=== PATIENT | female | born 1985 | race Caucasian/White ===

== ENCOUNTER 2018-03-11 12:11 | Observation (INO) ==
[2018-03-11] MEDS ORDERED: Isovue-370 500 ML INFUS..BTL IV ONE (12:38)
[2018-03-11] MEDS ORDERED: 0.9 % Sodium Chloride 1,000 ML IVC ONE (12:56)
[2018-03-11] MEDS ORDERED: Ketorolac 15 MG/ML VIAL IVP ONE ×2 (13:04→18:10)
--- NOTE | 2018-03-11 13:05 | Emergency Department Note ---
Disposition Clinical Impression: Abscess of arm, left, Septic thrombophlebitis Disposition: Admitted As Inpatient Condition: Fair Referrals: Cesar Andrew, PAC [Primary Care Provider] - Forms: ED Satisfaction Letter Time of Disposition: 18:14 General Adult HPI - General Chief complaint: ED Recheck/Abnormal Lab/Rx Stated complaint: Arm pain Time Seen by Provider: 03/11/18 12:14 Source: patient Limitations: no limitations Nursing Notes Reviewed: Yes Vital Signs Reviewed: Yes - History of Present Illness HPI Narrative: 32-year-old female past medical history of IV drug use presents emergency department with concern for left wrist and arm pain and swelling. Patient states that she injected into her arm. This started 4 days ago. She states this draining purulent fluid. Patient reports fever. Denies any chest pain, shortness of breath. Patient does have feeling in the left arm. Not on any recent antimicrobial therapy. Pain Scale: 9 - Related Data Home Medications Medication Instructions Recorded Confirmed No Known Home Drugs 03/11/18 03/11/18 Allergies Allergy/AdvReac Type Severity Reaction Status Date / Time No Known Allergies Allergy Verified 03/31/17 17:21 All systems ED: reviewed and negative except as stated. 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 Absent: respiratory distress - Cardiovascular Cardiovascular exam: Present: regular rate, normal rhythm, normal heart sounds - Abdominal Exam Abdominal exam: Present: soft, Non-Tender. Absent: distention, guarding, rebound, rigidity - Extremities Exam Extremities exam: Present: other (Left wrist has erythema and redness. On the proximal aspect of the posterior forearm, there is evidence of 2 abscesses. There are 2 areas of purulent drainage there as well. Patient is neurovascularly intact. Compartments are soft, but there is extensive tenderness to palpation.) - Neurological Exam Neurological exam: Present: alert, oriented X3 - Psychiatric Psychiatric exam: Present: anxious - Skin Skin exam: Present: other (As noted in extremity exam) Course Vital Signs Temperature 99.3 F 03/11/18 12:16 Pulse Rate 88 03/11/18 12:16 Respiratory Rate 18 03/11/18 12:16 Blood Pressure 120/83 03/11/18 12:16 O2 Sat by Pulse Oximetry 100 03/11/18 12:16 Temperature 99.3 F 03/11/18 12:16 Pulse Rate 120 03/11/18 14:50 Respiratory Rate 18 03/11/18 13:24 Blood Pressure 103/75 03/11/18 14:50 O2 Sat by Pulse Oximetry 100 03/11/18 14:50 Oxygen Delivery Oxygen Delivery Room Air Medical Decision Making - [facility] Narrative Medical decision making narrative: 32-year-old female presents emergency department with concern for left upper extremity abscesses with surrounding cellulitis. Left upper extremity is neurovascularly intact. Compartments are soft at this time. Patient mainly started on IV antimicrobial therapy with vancomycin and Zosyn. Patient has not resolved this is a 14.2. We obtain CT scan of the left upper extremity. Anticipation for admission as concerned that left upper extremity cellulitis may worsen, causing compartment syndrome. Also concerned that due to patient's IV drug use, she may not be compliant with outpatient therapy. Upper extremity CT revealed 2 abscesses along the dorsal radial aspect of the forearm. They were both superficial to the musculotendinous junction. One of the abscesses surrounded the cephalic vein. There was partial thrombosis. Concern for septic thrombophlebitis. Blood cultures have been obtained. I spoke with Dr. Jesus, the orthopedic surgeon. He stated he will come by and see the patient this evening. Stated that into coagulation would not be necessary at this time. I spoke with patient at bedside regarding further management. She agreed with the plan. Hospitalist agreed to accept the patient for admission. Dr. Cedillo, the hospitalist saw patient at bedside. Reported that was in room. Patient verbalized requesting to Dr. Cedillo that her not be informed of her IV drug use. Upper Extremity CT 03/11/18 12:38 IMPRESSION: There are 2 abscesses identified along the dorsal and radial aspect of the forearm as described above. D/ / Adebayo Agneles MD / Adebayo Angeles MD Interpreting Provider: Adebayo Angeles MD - Lab Data Result diagrams: 03/11/18 13:15 03/11/18 14:54 Lab Results 03/11/18 03/11/18 03/11/18 Range/Units 13:15 13:15 13:15 WBC 14.2 H (4.3-11.1) K/mcL RBC 4.20 (3.82-4.97) M/mcL Hgb 12.4 (11.5-15.4) g/dL Hct 38.2 (35.3-44.9) % MCV 91.0 (83.0-100.0) fL MCH 29.5 (28.0-33.3) pg MCHC 32.5 (31.6-35.5) g/dL RDW 14.2 (11.5-14.5) % Plt Count 262 (140-400) K/mcL MPV 9.2 L (9.4-12.4) fL Immature Gran % 0.5 (0-4) % Seg Neutrophils % 81.6 % Lymphocytes % 10.5 % Monocytes % 6.6 % Eosinophils % 0.5 % Basophils % 0.3 % Neutrophils # 11.6 H (1.6-8.9) K/mcL Lymphocytes # 1.5 (0.6-4.6) K/mcL Monocytes # 0.9 (0.0-1.3) K/mcL Eosinophils # 0.1 (0.0-0.6) K/mcL Basophils # 0.0 (0.0-0.2) K/mcL ESR 100 H (0-15) mm/hr Sodium (136-145) mEq/L Potassium (3.5-5.1) mEq/L Chloride (98-107) mEq/L Carbon Dioxide (23-29) mEq/L BUN (6-20) mg/dL Creatinine (0.60-1.20) mg/dL Est GFR ( Amer) (> 60) Est GFR (Non-Af Amer) (> 60) BUN/Creatinine Ratio (6-26) Glucose (70-105) mg/dL Calculated Osmolality (280-300) Lactic Acid (0.5-2.2) mmol/L Calcium (8.6-10.3) mg/dL Total Bilirubin (0.3-1.0) mg/dL AST (13-39) Units/L ALT (7-52) Units/L Alkaline Phosphatase (34-104) Units/L C-Reactive Protein 94 H (Less than 10) mg/L Serum Total Protein (6.4-8.9) g/dL Albumin (3.5-5.7) g/dL Globulin (2.4-3.5) g/dL Albumin/Globulin Ratio (1.1-2.2) Beta HCG, Quant (Less than 5) mIU/mL 03/11/18 03/11/18 Range/Units 14:54 14:54 WBC (4.3-11.1) K/mcL RBC (3.82-4.97) M/mcL Hgb (11.5-15.4) g/dL Hct (35.3-44.9) % MCV (83.0-100.0) fL MCH (28.0-33.3) pg MCHC (31.6-35.5) g/dL RDW (11.5-14.5) % Plt Count (140-400) K/mcL MPV (9.4-12.4) fL Immature Gran % (0-4) % Seg Neutrophils % % Lymphocytes % % Monocytes % % Eosinophils % % Basophils % % Neutrophils # (1.6-8.9) K/mcL Lymphocytes # (0.6-4.6) K/mcL Monocytes # (0.0-1.3) K/mcL Eosinophils # (0.0-0.6) K/mcL Basophils # (0.0-0.2) K/mcL ESR (0-15) mm/hr Sodium 136 (136-145) mEq/L Potassium 3.6 (3.5-5.1) mEq/L Chloride 107 (98-107) mEq/L Carbon Dioxide 24 (23-29) mEq/L BUN 6 (6-20) mg/dL Creatinine 0.38 L (0.60-1.20) mg/dL Est GFR ( Amer) > 60 (> 60) Est GFR (Non-Af Amer) > 60 (> 60) BUN/Creatinine Ratio 16 (6-26) Glucose 83 (70-105) mg/dL Calculated Osmolality 279 L (280-300) Lactic Acid 0.9 (0.5-2.2) mmol/L Calcium 8.3 L (8.6-10.3) mg/dL Total Bilirubin 0.4 (0.3-1.0) mg/dL AST 12 L (13-39) Units/L ALT 10 (7-52) Units/L Alkaline Phosphatase 65 (34-104) Units/L C-Reactive Protein (Less than 10) mg/L Serum Total Protein 6.9 (6.4-8.9) g/dL Albumin 3.4 L (3.5-5.7) g/dL Globulin 3.5 (2.4-3.5) g/dL Albumin/Globulin Ratio 1.0 L (1.1-2.2) Beta HCG, Quant < 1 (Less than 5) mIU/mL
--- NOTE | 2018-03-11 13:25 | Emergency Department Note ---
Disposition Clinical Impression: Abscess of arm, left Disposition: Still a Patient Referrals: Cesar Andrew, PAC [Primary Care Provider] - Forms: ED Satisfaction Letter General Adult HPI - General Chief complaint: ED Recheck/Abnormal Lab/Rx Stated complaint: Arm pain Time Seen by Provider: 03/11/18 12:14 Source: patient Limitations: no limitations - History of Present Illness Pain Scale: 9 - Related Data Home Medications Medication Instructions Recorded Confirmed Melatonin 03/31/17 Paxil 03/31/17 Tramadol HCl 03/31/17 03/31/17 Previous Rx's Medication Instructions Recorded Azithromycin [Azithromycin 6-Tab 250 mg PO PER PKG DI #6 tab 03/31/17 Pack] Naproxen 500 mg PO BID #6 tablet 03/31/17 Allergies Allergy/AdvReac Type Severity Reaction Status Date / Time No Known Allergies Allergy Verified 03/31/17 17:21 Past Medical History - Past Medical History Medical history: Reports: hepatitis, other Psychiatric history: Reports: anxiety, depression 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 - Social History Smoking Status: Current every day smoker Smokeless Tobacco Status: No Alcohol use: Reports: rarely Drug use: Reports: marijuana, methamphetamine Physical Exam - General Limitations: no limitations General appearance: alert Course Vital Signs Temperature 99.3 F 03/11/18 12:16 Pulse Rate 88 03/11/18 12:16 Respiratory Rate 18 03/11/18 12:16 Blood Pressure 120/83 03/11/18 12:16 O2 Sat by Pulse Oximetry 100 03/11/18 12:16 Temperature 99.3 F 03/11/18 12:16 Pulse Rate 88 03/11/18 12:16 Respiratory Rate 18 03/11/18 12:16 Blood Pressure 120/83 03/11/18 12:16 O2 Sat by Pulse Oximetry 100 03/11/18 12:16 Oxygen Delivery Oxygen Delivery Room Air Attestation Statement - Attestation Attestation: I examined this patient and my medical decision-making was reviewed with the Resident Physician. I agree with the documented findings, disposition and treatment plan as described except to the extent set forth below. 32 year old female presents to the Ed with complaints of left wrist abscess and pain and is a known IVDA and states that this has been getting wrose over hte past few days and now she is feeling increasinlgy weak and rigors with chills. Her left radial pulse is strong and she has good cap refill but hte left hand is displaying pallor and mild swelling in comparision ot the right. There is concern for compartment syndrome vs deep tissue infection. We will obtain a CT of the left arm, hand and then start IV ABX with vanco/zosyn, clinda and IVF and then consult with hand/ortho and admit to medicine
[2018-03-11 13:30] LABS: Basophils % 0.3 %; Eosinophils # 0.1 K/mcL (0.0-0.6); Eosinophils % 0.5 %; Hematocrit 38.2 % (35.3-44.9); Hemoglobin 12.4 g/dL (11.5-15.4); Immature Granulocytes % 0.5 % (0-4); Lymphocytes # 1.5 K/mcL (0.6-4.6); Lymphocytes % 10.5 %; Mean Corpuscular HGB Conc 32.5 g/dL (31.6-35.5); Mean Corpuscular Hemoglobin 29.5 pg (28.0-33.3); Mean Platelet Volume 9.2 fL (9.4-12.4); Monocytes # 0.9 K/mcL (0.0-1.3); Monocytes % 6.6 %; Neutrophils # 11.6 K/mcL (1.6-8.9); Platelet Count 262 K/mcL (140-400); Red Cell Distribution Width 14.2 % (11.5-14.5); Segmented Neutrophils % 81.6 %
[2018-03-11 15:27] LABS: Alanine Aminotransferase 10 Units/L (7-52); Albumin 3.4 g/dL (3.5-5.7); Alkaline Phosphatase 65 Units/L (34-104); Aspartate Amino Transferase 12 Units/L (13-39); BUN/Creatinine Ratio 16 (6-26); Bilirubin,Total 0.4 mg/dL (0.3-1.0); Blood Urea Nitrogen 6 mg/dL (6-20); Calcium 8.3 mg/dL (8.6-10.3); Carbon Dioxide 24 mEq/L (23-29); Chloride 107 mEq/L (98-107); Globulin 3.5 g/dL (2.4-3.5); Glucose 83 mg/dL (70-105); Osmolality,Calculated 279 (280-300); Potassium 3.6 mEq/L (3.5-5.1); Sodium 136 mEq/L (136-145); Total Protein 6.9 g/dL (6.4-8.9); eGFR For Non-African Americans > 60 (> 60)
[2018-03-11] MEDS ORDERED: Tdap (Boostrix) Vaccine 0.5 ML SYRINGE IM ONE (16:29)
[2018-03-11] MEDS ORDERED: Naloxone 0.4 MG/ML INJ IVP PRN ×2 (18:19→23:31)
[2018-03-11] MEDS ORDERED: Ketorolac 30 MG/ML VIAL IVP PRN (18:23)
[2018-03-11] MEDS ORDERED: Ringers Solution, Lactated 1,000 ML IVC SCH ×2 (18:30→23:31)
--- NOTE | 2018-03-11 19:53 | Internal Med History&Physical ---
Date of Encounter: 03/11/18 Time of Encounter: 17:45 Internal Medicine - H&P: HPI Chief complaint: Swelling R arm Admitted From: Emergency Dept Plans for Post Hospital Care: Home History of present illness: Ms. Thomson is a 32 year old female presented to ED with swelliing in L arm. She was evaluated and found to have abscesses and subsequently placed in observation. Ms Thomson says she has had swellings in her arm for last few days. No fever or chills. No CP or SOB. Injected meth about 4 days ago. not aware of meth use. Currently she has pain in arm and drainage. Past Med Surg Social Fam HX - Past Medical History Medical history: hepatitis, other Additional medical history: endometrosis Psychiatric history: anxiety, depression - Social History Smoking Status: Current every day smoker Smokeless Tobacco Status: No Alcohol use: rarely Drug use: marijuana, methamphetamine - Family History Maternal Grandmother Hx Family Endocrine Disorder: Yes (Diabetes) Internal Medicine - H&P: Meds No Known Home Drugs 03/11/18 [History] 3 Allergy/AdvReac Type Severity Reaction Status Date / Time No Known Allergies Allergy Verified 03/31/17 17:21 All Systems PM: A 10-system review of systems was performed and is negative for pertinent findings except as documented above in the HPI. - Constitutional Constitutional: no chills, no excessive sweating, no fever(s) - EENT Eyes: no irritation, no pain Ears: no decreased hearing Nose, mouth and throat: no dysphagia, no mouth pain - Cardiovascular Cardiovascular ROS IM: no chest pain, no dyspnea, no palpitations - Respiratory Respiratory: no dyspnea, no dyspnea on exertion, no chest congestion - Gastrointestinal Gastrointestinal: no abdominal pain, no nausea, no vomiting - Genitourinary Genitourinary: no difficulty urinating, no dysuria - Musculoskeletal Musculoskeletal ROS IM: limited range of motion - Integumentary Integumentary IM: as per HPI - Neurological Neurological ROS: no dizziness, no vertigo - Endocrine Endocrine IM: no cold intolerance, no heat intolerance - Hematologic/Lymphatic Hematologic/Lymphatic: no easy bleeding - Allergic/Immunologic Allergic/Immunologic: no tongue swelling - Constitutional Vitals: Temp Pulse Resp BP Pulse Ox 99.3 F 72 16 129/87 96 03/11/18 12:16 03/11/18 17:15 03/11/18 18:39 03/11/18 18:39 03/11/18 17:15 General appearance: Present: A&O X 3, answers questions appropriately Exam: See below - Head Head exam: Present: atraumatic, normocephalic - Eye Eye exam: Present: EOMI, conjuntiva pink - ENT ENT exam: Present: mucous membranes moist - Respiratory Respiratory exam: Present: CTAB. Absent: rales, rhonchi, wheezes - Cardiovascular Cardiovascular exam: Present: RRR. Absent: tachycardia - GI/Abdominal GI/Abdominal exam: Present: normal bowel sounds, soft. Absent: tenderness - Extremities Exam Additional comments: LUE with 2 areas of swelling. One area is draining. Arm swollen and erythematous. - Neurological Exam Neurological exam: Present: alert, oriented X3, no focal deficits - Skin Skin exam: Present: dry, erythema, warm Internal Med - H&P Results - Labs CBC & Chem 7: 03/11/18 13:15 03/11/18 14:54 - Assessment and plan (1) Abscess of arm, left Current Visit: Yes Status: Acute Assessment and plan: Place in observation. IV abx. Ortho consult. (2) Septic thrombophlebitis Current Visit: Yes Status: Acute Assessment and plan: Cephalic vein of L arm. IV abx ordered. (3) Tobacco abuse Current Visit: Yes Status: Chronic Assessment and plan: Cessation counselling. (4) Polysubstance abuse Current Visit: Yes Status: Chronic Assessment and plan: Meth and marijuana - Time Spent With Patient Total time spent is greater than 50% in coordination of care (as documented) at patient's floor/unit and/or counseling patient:
[2018-03-11] MEDS ORDERED: Nicotine 21 MG PATCH.TD24 TD SCH (21:00)
--- NOTE | 2018-03-11 21:31 | Orthopedic Consult Note ---
Date of Encounter: 03/11/18 Time of Encounter: 21:24 History of Present Illness Chief complaint: Left forearm pain and swelling HPI: Ms. Thomson is a 32 year old [id number] female who was self injected methamphetamine about a week ago into the left arm. She developed relatively rapid pain and swelling in the arm for about the past 3-4 days. The abscess area on the left dorsal ulnar aspect started draining day ago with some relief. It persistent draining foul thick fluid. A second area on the more radial aspect of the distal forearm is causing increased pain and swelling without any drainage. Patient denies neurovascular complaints. Vital signs are stable. She does have a temperature of 100.1. Examination reveals 2 large fluctuant areas on the left forearm. These are about 5 or 6 cm proximal to the wrist proper. On the radial side of the forearm is a fluctuant area without drainage. On the more ulnar dorsal aspect is a large pocket draining thick foul smelling purulent material. Swelling is noted and in the arm and hand distal. Distal neurosensory exam is grossly intact. Laboratory data includes a hemoglobin of 12.4. White blood cell count is 14.2. ESR is 100. CRP is 94. Lactic acid is normal. I reviewed a CT scan of the left forearm. This reveals 2 distinct abscess cavities within the subcutaneous tissue and the left forearm consistent with those seen clinically. Impression: Multiple abscesses left forearm, suspect polymicrobial Recommendation: We will make plans for urgent incision and drainage in the operating room tonight. Discussed with the patient that the cornerstone of treatment is incision and drainage followed by appropriate antibiotics. I discussed the surgical procedure which would be geared towards decompressing and eliminating the abscess and allowing drainage to permit antibiotics to help clear up the remaining infection. Discussed the surgery with its potential risk and complications including but not limited to bleeding, infection, need for additional surgery, neurovascular injuries and the fact that we will probably leave the wounds open and allow them to heal by secondary intention with delayed healing. Patient is aware of and understands. She has signed informed consent of proceed with surgical intervention. We will proceed as soon as operating time is available tonight. Thank you very much for allowing me to see and care for care for Mrs. Thomson. Sincerely, Mario Jesus,DO Past Med Surg Social Fam HX - Past Medical History Medical history: hepatitis, other Additional medical history: endometrosis Psychiatric history: anxiety, depression - Social History Smoking Status: Current every day smoker Smokeless Tobacco Status: No Alcohol use: rarely Drug use: marijuana, methamphetamine - Family History Maternal Grandmother Hx Family Endocrine Disorder: Yes (Diabetes) Medications and Allergies No Known Home Drugs 03/11/18 [History] 3 Allergy/AdvReac Type Severity Reaction Status Date / Time No Known Allergies Allergy Verified 03/31/17 17:21 All Systems Reviewed: The remainder of the systems were reviewed and are negative Physical Exam - Constitutional Vitals: Temp Pulse Resp BP Pulse Ox 100.1 F H 89 14 113/68 98 03/11/18 20:46 03/11/18 20:46 03/11/18 20:46 03/11/18 20:46 03/11/18 20:46 Results - Labs Result Diagrams: 03/11/18 13:15 03/11/18 14:54 Labs: Abnormal lab results WBC 14.2 K/mcL (4.3-11.1) H 03/11/18 13:15 MPV 9.2 fL (9.4-12.4) L 03/11/18 13:15 Neutrophils # 11.6 K/mcL (1.6-8.9) H 03/11/18 13:15 ESR 100 mm/hr (0-15) H 03/11/18 13:15 Creatinine 0.38 mg/dL (0.60-1.20) L 03/11/18 14:54 Calculated Osmolality 279 (280-300) L 03/11/18 14:54 Calcium 8.3 mg/dL (8.6-10.3) L 03/11/18 14:54 AST 12 Units/L (13-39) L 03/11/18 14:54 C-Reactive Protein 94 mg/L (Less than 10) H 03/11/18 13:15 Albumin 3.4 g/dL (3.5-5.7) L 03/11/18 14:54 Albumin/Globulin Ratio 1.0 (1.1-2.2) L 03/11/18 14:54 All other labs normal. - Diagnostic results Wrist/Hand CT: image reviewed Consult Discharge Plan - Plan Referrals: Cesar Andrew, PAC [Primary Care Provider] -
[2018-03-11 21:46] LABS: Bilirubin,Urine Negative (Negative); Blood,Urine Negative (Negative); Clarity,Urine Clear (Clear); Color,Urine Yellow (Yellow); Glucose,Urine (UA) Normal (Normal); Ketones,Urine Negative (Negative); Leukocyte Esterase,Urine Negative (Negative); Nitrite,Urine Negative (Negative); Protein,Urine 30 mg/dL (Neg-Trace); Specific Gravity,Urine > 1.030 (1.010-1.025); Urobilinogen,Urine Normal (Normal)
[2018-03-11 21:48] LABS: Bacteria,Urine None Seen per hpf (None-Few); Squamous Epithelial Cell,Urine Many per lpf (None-Few)
--- NOTE | 2018-03-11 21:53 | Anesthesia Evaluation PreOp ---
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 Not followed. NOT treated) Anesthesia History: Past Anesthesia (NO prior GA), MH (NO FamHx of MH) Alcohol Use: rarely Drug use: marijuana (daily "at bedtime"), methamphetamine ("7 days ago"), IV Drug Use ("injected Meth 4 days ago" per H&P) Medications and Allergies No Known Home Drugs 03/11/18 [History] 3 Allergy/AdvReac Type Severity Reaction Status Date / Time No Known Allergies Allergy Verified 03/31/17 17:21 - Meds/Allergy Pre-op Review Medications Reviewed: Yes Allergies Reviewed: Yes Beta Blockers on Current Med List: No Anesthesia Results - Labs 03/11/18 13:15 03/11/18 14:54 Laboratory Tests 03/11/18 14:54 Est GFR (Non-Af Amer) > 60 Calcium 8.3 L Beta HCG, Quant < 1 Anesthesia Exam Vital Signs Temp Pulse Resp BP Pulse Ox 03/11/18 20:46 100.1 F H 89 14 113/68 98 03/11/18 18:39 16 129/87 03/11/18 17:15 72 18 114/57 96 03/11/18 16:30 84 18 134/75 96 03/11/18 15:25 85 18 104/57 96 03/11/18 14:50 120 103/75 100 03/11/18 13:24 86 18 112/69 100 03/11/18 12:16 99.3 F 88 18 120/83 100 Intake and Output 03/11/18 03/11/18 03/11/18 07:59 15:59 23:59 Intake Total 1000 / 1000 0 / 0 Output Total 0 / 0 Balance 1000 / 1000 0 / 0 Intake: IV Fluids 1000 / 1000 0.9 % Sodium Chloride 1,000 ML 1000 / 1000 @ 999 mls/hr IVC .Q1H1M ONE Rx# :[id number] Oral 0 / 0 Output: Urine 0 / 0 Other: Weight 48.988 kg 50.6 kg Patient Weight 03/11/18 23:59 Weight 50.6 kg Height: 5'2" Weight: 111# BMI = 20.4 NPO (# of Hours): MNOc - HEENT Pupil (Motor): Pupils equal, EOMI Mallampati: II Teeth: Missing, Poor dentition Oral Opening: Greater than 3 - DESK EDITOR LOC: Oriented DESK EDITOR Motor: Normal RUE, Normal LUE, Normal RLE, Normal LLE, Normal Face DESK EDITOR Sensory: Normal: RUE, LUE, RLE, LLE, Face - Cardiac Rhythm: Regular Murmur: None - Pulmonary Breath Sounds: bilateral Clear Respiratory Effort: Symmetrical Anesthesia Assess/Plan ASA Score: 3 (Smoker, Polysubstance abuse/IV drug abuse, Anxiety/depression, Hepatitis), E Anesthetic Plan: General Monitoring Plan: Standard Monitors Recovery Plan: PACU Anes Supervising Prov Stmt: Pt seen/evaluated, R&B discussed, questions answered and consent obtained. Roque Jackson MD
[2018-03-11 21:56] LABS: Amphetamine Screen,Urine Negative ng/mL (Cutoff=1000); Barbiturate Screen,Urine Negative ng/mL (Cutoff=200); Benzodiazepines Screen,Urine Negative ng/mL (Cutoff=200); Cannabinoid Screen,Urine Positive ng/mL (Cutoff = 50); Cocaine Screen,Urine Negative ng/mL (Cutoff= 300); Opiate Screen,Urine Negative ng/mL (Cutoff=300); Phencyclidine Screen,Urine Negative ng/mL (Cutoff=25)
[2018-03-11] MEDS ORDERED: Albuterol 2.5 MG/3 ML NEBULIZER ONE (22:03)
[2018-03-11] MEDS ORDERED: *HR* FentaNYL (PF) 100 MCG/2 ML VIAL ONE ×2 (22:11→22:33)
[2018-03-11] MEDS ORDERED: Lidocaine -MPF 2% 2 ML VIAL ONE (22:11)
[2018-03-11] MEDS ORDERED: *HR* Midazolam HCl 2 MG/2 ML VIAL ONE (22:12)
[2018-03-11] MEDS ORDERED: *HR* Propofol 200 MG/20 ML VIAL IVP ONE (22:12)
[2018-03-11] MEDS ORDERED: Dexamethasone 4 MG/ML VIAL ONE (22:14)
[2018-03-11] MEDS ORDERED: Ketorolac 30 MG/ML VIAL ONE (22:14)
[2018-03-11] MEDS ORDERED: Ondansetron 4 MG/2 ML VIAL ONE (22:14)
[2018-03-11] MEDS ORDERED: *HR* Magnesium Sulfate 1 GM/2 ML VIAL ONE (22:35)
--- NOTE | 2018-03-11 23:06 | Operative Note ---
Date of procedure: 03/11/18 Pre-op diagnosis: Multiple abscesses left forearm Post-op diagnosis: same Procedure: Incision and drainage multiple abscesses left forearm Implants: None Complications: None Anesthesia: ROXY Surgeon: Mario Jesus Was there an court assistant present: No Estimated blood loss (cc): 10 Tourniquet Time (Minutes): 0 Specimen: Aerobic and anaerobic cultures Condition: stable Disposition: PACU Procedure in Detail: Gross findings: Preoperative clinical examination revealed fluctuant areas on the left forearm. These were located about 5 or 6 cm proximal to the wrist. First was on the radial aspect and was closed with the marked fluctuant area noted. This is approximately 3 cm x 3 cm in diameter. On the slightly more proximal ulnar aspect was a similar sized pocket though this had some necrotic skin and draining a very foul purulent material. Both sites were opened. The more ulnar based pocket showed a marked amount of necrotic skin and necrotic subcutaneous tissue that was evacuated and debrided followed by irrigation and then packing with iodoform packing. Skin was loosely approximated with a single horizontal mattress stitch of 3-0 Prolene. The more radial based fluctuant area was opened with a linear incision and again at foul smelling purulent material was evacuated. Cultures were obtained. Similarly this wound was irrigated and debrided packed with iodoform and loosely approximated with 3-0 Prolene suture. Procedure: Patient was taken the operating room placed in supine position on the operating table. Patient was now manicured a general anesthesia. Once adequate level of anesthesia had been obtained left upper extremity was prepped and draped in normal standard fashion with a tourniquet placed high about the upper arm that was ultimately not utilized for the surgical procedure. Attention was first paid to the more radial area. A linear incision was created directly through the skin over top of the fluctuant area. Immediately expressed was a large volume of purulent material from this abscess cavity. Cultures were obtained at this time. This is extremely foul-smelling. Limited debridement was required. Was copiously irrigated with saline solution. Additional debridement of some subcutaneous necrotic tissue was performed. This is followed by turning to the more ulnar based cavity on the dorsal surface. The small open areas were spread with scissors and the tissue was extremely necrotic and essence fell apart. Thick purulent material was again noted over here and evacuated. Skin was debrided of necrotic edges. The wound was copiously irrigated with saline solution. Debridement of necrotic subcutaneous tissue was performed. This is now followed by packing each of the wounds with 1/2 inch iodoform packing him and placing a single stitch of 3-0 Prolene suture to loosely approximate the skin without closure. Sterile dressings consisting of 4 x 4's Kerlix and Shree wraps were now applied and secured. Patient was now awakened from anesthesia and then transported to the postanesthesia care unit in stable and satisfactory condition. All sponge needle and instrument counts are correct. Specimens for pathology with the abscess cultures
--- NOTE | 2018-03-11 23:13 | Anesthesia Evaluation Post Op ---
Date of Encounter: 03/11/18 Time of Encounter: 23:12 - Vital Signs Vital Signs: Vital Signs/O2 Sat/Glucose, Most Current Temp Pulse Resp BP Pulse Ox 03/11/18 23:08 99.2 F 99 16 96/68 99 03/11/18 22:58 99.2 F 87 12 98/50 95 03/11/18 20:46 100.1 F H 89 14 113/68 98 - Lungs Lungs: Clear Ascult./Percussion - Airway Airway: Non-obstructed - Cardiovascular Regular Rate - Mental Status Mental Status: Alert & Oriented, Answers Appropriately - Pain Pain Scale: 2 Pain Scale used: Numeric (1 - 10) - Nausea Vomiting Nausea Vomiting: Not Present - Hydration Hydration: Ice chips, Has not voided - Discharge PostOp Status: Transfer Patient to floor Anes Supervising Prov Stmt: Pt seen/evaluated, VSS And has met criteria for discharge to floor. - MD Renetta
[2018-03-12] MEDS: Ketorolac 30 MG/ML VIAL IVP PRN ×2 (03:50→10:03)
[2018-03-12 06:46] LABS: Hematocrit 32.2 % (35.3-44.9); Mean Corpuscular HGB Conc 32.9 g/dL (31.6-35.5); Mean Corpuscular Hemoglobin 29.8 pg (28.0-33.3); Mean Corpuscular Volume 90.4 fL (83.0-100.0); Mean Platelet Volume 9.5 fL (9.4-12.4); Platelet Count 196 K/mcL (140-400); Red Blood Count 3.56 M/mcL (3.82-4.97); Red Cell Distribution Width 13.6 % (11.5-14.5)
[2018-03-12 06:48] LABS: Hemoglobin 10.6 g/dL (11.5-15.4)
[2018-03-12 07:11] LABS: BUN/Creatinine Ratio 17 (6-26); Blood Urea Nitrogen 8 mg/dL (6-20); Calcium 8.4 mg/dL (8.6-10.3); Carbon Dioxide 22 mEq/L (23-29); Chloride 109 mEq/L (98-107); Glucose 166 mg/dL (70-105); Magnesium 2.3 mg/dL (1.6-2.6); Osmolality,Calculated 284 (280-300); Sodium 136 mEq/L (136-145); eGFR For Non-African Americans > 60 (> 60)
[2018-03-12 07:36] LABS: Neutrophils # 9.1 K/mcL (1.6-8.9)
[2018-03-12 07:37] LABS: Platelet Estimate Normal (Normal)
[2018-03-12] MEDS ORDERED: Piperacillin/Tazobactam 3.375 GM in 0.9 % Sodium Chloride Mini Bag 100 ML IVPB SCH ×3 (11:00)
[2018-03-12 11:29] VITALS: BP 104/68
--- NOTE | 2018-03-12 15:17 | Event Note ---
Date of Encounter: 03/12/18 Time of Encounter: 15:15 Patient adamant about leaving AMA. She understands the risk of leaving before blood cultures come back. I instructed for her to follow up outpatient with PCP and orthopedic surgeon and wound care. Will discharge her with Keflex and ibuprofen. She is to come back to ED if wound does not heal, becomes purulent again, develops high fever, chills, nausea, vomiting. She expresses understanding and is agreeable. Physical Exam: unremarkable and unchanged.
[2018-03-12] MEDS ORDERED: Aminoglycoside Consult 1 EACH MC ONE (15:45)
--- NOTE | 2018-03-12 16:20 | Internal Med Progress Note ---
<Alfred David - Last Filed: 03/12/18 16:17> Hospitalist Progress Note - Encounter Date of Encounter: 03/12/18 Time of Encounter: 11:00 - Subjective Interval History: Patient is doing well. reports that she is doing a lot better since I&D. Denies f/c/n/v. Reports pain is well controlled. No difficulty voiding and tolerating PO. +BM. No CP, SOB, cough, abdominal pain, tingling, numbness, confusion, dizziness. No acute complaints. Patient would like to go home. - Exam Vitals: Temp Pulse Resp BP Pulse Ox 98.4 F 71 18 104/68 97 03/12/18 11:26 03/12/18 11:26 03/12/18 11:26 03/12/18 11:26 03/12/18 11:26 Exam: A 10-system review of systems was performed and is negative for pertinent findings except as documented above in the HPI. Left arm wrapped. - Constitutional Constitutional: no chills, no excessive sweating, no fever(s) - EENT Eyes: no irritation, no pain Ears: no decreased hearing Nose, mouth and throat: no dysphagia, no mouth pain - Cardiovascular Cardiovascular ROS IM: no chest pain, no dyspnea, no palpitations - Respiratory Respiratory: no dyspnea, no dyspnea on exertion, no chest congestion - Gastrointestinal Gastrointestinal: no abdominal pain, no nausea, no vomiting - Genitourinary Genitourinary: no difficulty urinating, no dysuria - Musculoskeletal Musculoskeletal ROS IM: limited range of motion - Integumentary Integumentary IM: as per HPI - Neurological Neurological ROS: no dizziness, no vertigo - Endocrine Endocrine IM: no cold intolerance, no heat intolerance - Hematologic/Lymphatic Hematologic/Lymphatic: no easy bleeding - Allergic/Immunologic Allergic/Immunologic: no tongue swelling - Assessment and Plan (1) Abscess of arm, left Status: Acute Assessment and Plan: s/p I&D day #2 Continue with IV Abx until BCx come back. Discharge with PO antibiotics when appropriate. (2) Septic thrombophlebitis Status: Acute (3) Polysubstance abuse Status: Chronic (4) Tobacco abuse Status: Chronic - Time Spent with Patient Total time spent is greater than 50% in coordination of care (as documented) at patient's floor/unit and/or counseling patient: Internal Medicine: Result - Labs CBC & Chem 7: 03/12/18 06:26 03/12/18 06:26 Labs: Short CBC 03/12/18 Range/Units 06:26 WBC 10.1 (4.3-11.1) K/mcL Hgb 10.6 L D (11.5-15.4) g/dL Hct 32.2 L (35.3-44.9) % Plt Count 196 (140-400) K/mcL Neutrophils # 9.1 H (1.6-8.9) K/mcL BMP 03/12/18 06:26 Sodium 136 Potassium 4.0 Chloride 109 H Carbon Dioxide 22 L BUN 8 Creatinine 0.47 L Glucose 166 H Calcium 8.4 L Urine 03/11/18 Range/Units 21:35 Urine Color Yellow (Yellow) Urine Clarity Clear (Clear) Urine pH 6.0 (5.0-8.0) pH Units Ur Specific [place] > 1.030 H (1.010-1.025) Urine Protein 30 H (Neg-Trace) mg/dL Urine Glucose (UA) Normal (Normal) mg/dL Consult Discharge Plan - Plan Referrals: Mario Jesus DO [Non-Partnered Physician] - 03/20/18 11:25 am Cesar Andrew, PAC [Primary Care Provider] - Prescriptions: Cephalexin [Keflex] 500 mg PO BID 14 Days #28 capsule Ibuprofen 800 mg PO DAILY #30 tablet <Moisés Burrell - Last Filed: 03/12/18 16:53> Hospitalist Progress Note - Encounter Date of Encounter: 03/12/18 - Exam Vitals: Temp Pulse Resp BP Pulse Ox 98.4 F 71 18 104/68 97 03/12/18 11:26 03/12/18 11:26 03/12/18 11:26 03/12/18 11:26 03/12/18 11:26 - Assessment and Plan (1) Abscess of arm, left Status: Acute (2) Septic thrombophlebitis Status: Acute (3) Tobacco abuse Status: Chronic (4) Polysubstance abuse Status: Chronic - Time Spent with Patient Total time spent is greater than 50% in coordination of care (as documented) at patient's floor/unit and/or counseling patient: Internal Medicine: Result - Labs CBC & Chem 7: 03/12/18 06:26 03/12/18 06:26 Labs: Short CBC 03/12/18 Range/Units 06:26 WBC 10.1 (4.3-11.1) K/mcL Hgb 10.6 L D (11.5-15.4) g/dL Hct 32.2 L (35.3-44.9) % Plt Count 196 (140-400) K/mcL Neutrophils # 9.1 H (1.6-8.9) K/mcL BMP 03/12/18 06:26 Sodium 136 Potassium 4.0 Chloride 109 H Carbon Dioxide 22 L BUN 8 Creatinine 0.47 L Glucose 166 H Calcium 8.4 L Urine 03/11/18 Range/Units 21:35 Urine Color Yellow (Yellow) Urine Clarity Clear (Clear) Urine pH 6.0 (5.0-8.0) pH Units Ur Specific [place] > 1.030 H (1.010-1.025) Urine Protein 30 H (Neg-Trace) mg/dL Urine Glucose (UA) Normal (Normal) mg/dL - Attending Attestation I performed an independent interview and examine this patient. I agree with the findings, assessment, and plan of Dr. David, internal medicine resident. Patient states pain is currently controlled. Culture data is pending. Gen NAD Left arm - wound dressed Ht RRR no murmur Lung CTAB Patient unfortunately demanded to leave AGAINST MEDICAL ADVICE. He was counseled on the importance of following up with culture data, but states she had a home emergency involving her children and absolutely had to leave. Pt askred to follow up with as soon as possible. She was sent home with Keflex. Instructed to call immediately if fevers or any other problems. Counselled on avoidance of all drugs except that which is prescribed. Rec she seek substance abuse treatment. Coniditon on dc stable but gaurded.
[2018-03-12] MEDS ORDERED: Nicotine 21 MG PATCH.TD24 TD SCH (21:00)
== END 2018-03-12 15:46 | disposition left against medical advice (07) ==
LOC: SUATTDRO → EMEROOARM 12:11 → 3ANU 12:11
PROVIDERS: ADMIT Internal Medicine; ATTEND Internal Medicine